=== PATIENT | female | born 1990 | race Two or more races ===

== ENCOUNTER 2021-10-09 18:15 | Emergency (ER) | payer OTHER ==
[~2021-10-09] VITALS: Ht 167.6 cm; Wt 80.0 kg
[2021-10-09] MEDS ORDERED: HYDROCODON-ACE1 EA10 PO (20:58)
== END 2021-10-09 21:39 | disposition home or self-care (01) ==
LOC: ED 18:15
DX: S30.0XXA Contusion of lower back and pelvis, initial encounter (principal); W01.10XA Fall on same level from slipping, tripping and stumbling with subsequent striking against unspecified object, initial encounter
CPT/HCPCS: 72100; 99283-25; A9270